=== PATIENT | female | born 1975 | race Caucasian/White ===

== ENCOUNTER 2019-01-08 22:45 | Emergency (ER) | payer SELFPAY ==
[~2019-01-08] VITALS: Ht 177.8 cm; Wt 99.8 kg
[~2019-01-08 22:45] MED LIST: AMOX500C2 PO; HYDR-1231 PO; HYDR-3714 PO; IBUP400T22 PO; META800T5; NAPR-243 PO; OXYC-12 PO; PENI500T PO; PHEN37.555; TRM50T PO
[2019-01-09] MEDS ORDERED: TETANUS,DIPTH,PERTUSS P/F (BOOSTRIX) 0.5 ML VIAL IM ONE (00:15)
[2019-01-09] MEDS ORDERED: LIDOCAINE 1% INJ 20 ML 20 ML VIAL INJ ONE (00:15)
--- NOTE | 2019-01-09 01:40 | ED Integumentary General ---
General Chief Complaint: Laceration Stated Complaint: R HAND LAC Nursing Triage Note: AMBULATORY TO ED WITH C/O SEVERAL LACERATIONS TO RIGHT PALM NEAR THUMB THAT OBTAINED FROM BROKEN GLASS SHE WAS WASHING. Source: patient Exam Limitations: no limitations History of Present Illness Date Seen by Provider: Jan 08, 2019 Time Seen by Provider: 23:55 Initial Comments This 43-year-old woman presents to the emergency room with a large flap laceration at the base of the right thumb. She was washing a glass that broke causing a laceration. She states the glass was clean. She has not had a tetanus immunization in the last 5 years. Range of motion and sensation of the thumb are intact. Allergies and Home Medications Allergies Coded Allergies: No Known Drug Allergies (Unverified , 08/05/09) Home Medications Hydrocodone Bit/Acetaminophen 1 Tab Tablet, 1-2 TAB PO Q6H PRN for PAIN Prescribed by: JESSIE SAN on 04/07/14 1531 Oxycodone Hcl/Acetaminophen 1 Each Tablet, 1-2 EACH PO Q4-6H PRN Do not take with Hydrocodone. Prescribed by: VIKTOR KEDNALL on 05/22/14 1220 Patient Home Medication List Home Medication List Reviewed: Yes Review of Systems Review of Systems Constitutional: no symptoms reported EENTM: no symptoms reported Respiratory: no symptoms reported Cardiovascular: no symptoms reported Gastrointestinal: no symptoms reported Genitourinary: no symptoms reported Musculoskeletal: no symptoms reported Skin: see HPI Psychiatric/Neurological: No Symptoms Reported Endocrine: No Symptoms Reported Hematologic/Lymphatic: No Symptoms Reported Past Fgzdosc-Rwrcci-Yrhflk Hx Past Med/Social Hx: Reviewed Nursing Past Med/Soc Hx Patient Social History Alcohol Use: Past History Recreational Drug Use: No Smoking Status: Current Everyday Smoker Type Used: Cigarettes Recent Foreign Travel: No Contact w/Someone Who Travel: No Recent Infectious Disease Expo: No Recent Hopitalizations: No Immunizations Up To Date Tetanus Booster (TDap): Less than 5yrs Date of Pneumonia Vaccine: Sep 12, 2011 Date of Influenza Vaccine: Jul 13, 2011 Seasonal Allergies Seasonal Allergies: No Past Medical History Surgeries: Yes (tubal removed) Orthopedic, Tubal Ligation Respiratory: No Cardiac: No Neurological: No Reproductive Disorders: No CLINICAL RECRUITER History: Tubal Ligation Sexually Transmitted Disease: No Genitourinary: No Gastrointestinal: No Musculoskeletal: Yes (ARTHRITIS) Endocrine: No HEENT: No Cancer: No Psychosocial: No Integumentary: No Blood Disorders: No Family Medical History Patient reports no known family medical history. Physical Exam Vital Signs Vital Signs - First Documented 01/08/19 01/09/19 22:57 01:50 Temp 98.3 Pulse 94 Resp 16 B/P (MAP) 126/87 (100) Pulse Ox 98 Capillary Refill : Less Than 3 Seconds General Appearance: WD/WN, no apparent distress HEENT: normal ENT inspection Cardiovascular: regular rate, rhythm, no edema Respiratory: lungs clear, normal breath sounds, no respiratory distress Extremities: other (there is a flap laceration over the right first MCP joint. This is a large flap with an extension down the center. Total length is between 8 and 9 cm. There is slight bleeding. Sensation and range of motion of the thumb intact.) Neurologic/Psychiatric: psychiatric rn II-XII nml as tested, no motor/sensory deficits, alert, normal mood/affect, oriented x 3 Skin: normal color, warm/dry Procedures/Interventions Wound Location: Upper Extremities Other Wound Location Over the MCP joint area of the right hand on the palmar aspect Wound Length (cm): 8 Wound's Depth, Shape: flap Wound Explored: clean Irrigated w/ Saline (ccs): 500 Betadine Prep?: Yes Anesthesia: 1% Lidocaine Volume Anesthetic (ccs): 5 Suture: Prolene Suture Size: 5-0 Number of Sutures: 10 Progress/Results/Core Measures Results/Orders My Orders Orders - TARA RUTH MD Dipht,Pertquinn(Acell),Tet Adult (Boostrix (01/09/19 00:15) Lidocaine 1% Inj 20 Ml (Xylocaine 1% Inj (01/09/19 00:15) Vaccine Administration Single (01/08/19 ) Medications Given in ED Vital Signs/I&O 01/08/19 01/09/19 22:57 01:50 Temp 98.3 98.3 Pulse 94 80 Resp 16 16 B/P (MAP) 126/87 (100) 117/83 (94) Pulse Ox 98 Blood Pressure Mean: 100 Progress Progress Note : Progress Note Boostrix tetanus immunization was administered. Skin was cleaned with alcohol and local anesthetic injection was administered. Flap was lifted. Wound was then cleaned with sterile saline and chlorhexidine followed by irrigation with sterile normal saline. Wound was then repaired with 5-0 Prolene. Departure Impression Primary Impression: Laceration of hand Qualified Codes: S61.411A - Laceration without foreign body of right hand, initial encounter Disposition: 01 HOME, SELF-CARE Condition: Improved Departure-Patient Inst. Decision time for Depature: 01:25 Referrals: LISA NGO MD (PCP/Family) Primary Care Physician Patient Instructions: Laceration Repair With Stitches (DC) Add. Discharge Instructions: Keep the wound clean and dry except for normal handwashing and showering. You may allow soapy water to run over the wound starting this afternoon but avoid touching or scrubbing over the sutures. Do not submerge until after sutures are removed. You may have sutures removed in 10-12 days. You may return to the emergency room to have this done. Monitor the wound for signs of infection such as increasing redness, increasing swelling, puslike drainage, increasing pain, or fever. Return to care promptly if you notice these symptoms. Please either follow-up in the ER for a wound check in a few days or present to your primary care provider for a repeat exam. Return to care if you have any other problems or concerns. Keep the wound covered anytime you are active or working in a potentially dirty environment. Otherwise, you may keep the wound open to air when at rest. You may use Tylenol (acetaminophen) and/or ibuprofen for pain. All discharge instructions reviewed with patient and/or family. Voiced understanding. Work/School Note: Work Release Form Date Seen in the Emergency Department: Jan 09, 2019 Return to Work: January 11, 2019 Other Restrictions Listed Below: No strenuous activity with right hand. Avoid excessive use of right hand. TARA RUTH MD Jan 09, 2019 01:40
[2019-01-09 01:50] VITALS: BP 117/83
== END 2019-01-09 01:50 | disposition home or self-care (01) ==
LOC: EDUNIT# 22:45 → ER 22:46
DX: S61.411A Laceration without foreign body of right hand, initial encounter (principal); F17.210 Nicotine dependence, cigarettes, uncomplicated; Z23 Encounter for immunization; Z98.51 Tubal ligation status; W25.XXXA Contact with sharp glass, initial encounter
CPT/HCPCS: 12042; 90471; 90715